=== PATIENT | male | born 1965 | race Caucasian/White ===

== ENCOUNTER → 2016-11-21 | Day surgery (SDC) | payer BC ==
[2015-06-03 10:55] VITALS: BMI 29.5
[~2016-11-21] MED LIST: DEXAMETHASONE 4 MG/ML VIAL IV ONE; FENTANYL 100 MCG/2 ML VIAL IV ONE; FENTANYL 100 MCG/2 ML VIAL IV PRN; HYDROmorphone 1 MG INJECTION IV PRN; ISOVUE-300 (61%) 50 ML ONE; KETOROLAC TROMETH 30 MG/ML VIAL IM ONE; LABETALOL 20 MG/4 ML SYRINGE IV PRN; LIDOCAINE 100 MG PFS IV ONE; Levofloxacin 500 mg/100 ml D5W 500 MG/100 ML RTU IV ONE; MEPERIDINE 25 MG/ML TUBEX IV PRN; MIDAZOLAM 2 MG/2 ML VIAL IV ONE; ONDANSETRON HCL 4 MG ODT TAB PO PRN; ONDANSETRON HCL 4 MG/2 ML VIAL IV ONE; ONDANSETRON HCL 4 MG/2 ML VIAL IV PRN; OXYCODONE HCL 5 MG TABLET ONE; PROPOFOL 200 MG/20 ML VIAL IV ONE; hydrALAZINE 20 MG/ML VIAL IV PRN
[2016-11-21 07:29] LABS: AUTOMATED BASOPHIL 0.8 % (0-2); AUTOMATED EOSINOPHIL 5.3 % (0-5); AUTOMATED MONOCYTE 9.6 % (3-10); AUTOMATED NEUTROPHIL 66.3 % (45-76); MPV 8.1 fL (7.4-10.4)
[2016-11-21 07:40] LABS: BLOOD UREA NITROGEN 16 MG/DL (9-20); CALCIUM 8.5 MG/DL (8.4-10.2); CALCULATED OSMOLALITY 269 MOs/Kg (270-290); CHLORIDE 102 mEq/L (98-107); GLUCOSE 97 MG/DL (70-99); SODIUM LEVEL 139 mEq/L (137-146)
--- NOTE | 2016-11-21 08:00 | HIM.ANES ---
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), Hx Cardiac Disorders HEENT: Yes: Other HEENT Problems Hx Other HEENT Problems: allergic rhinitis; eustachian tube dysfunction Respiratory: Yes: Hx Snoring No: Hx Sleep Apnea (NEGATIVE SLEEP APNEA TEST 2011.) Gastrointestinal: Yes: Hx Gastrointestinal Disorders, Hx Diverticulitis, Hx Diverticulosis, Hx Colonoscopy (2012) Neurological/Musculoskeletal: No: Hx Neurological Disorders Psychological: No Hx Mental/Emotional Disorders Blood/Autoimmune: No: Hx Blood Transfusions, Hx AIDS, Hx Hepatitis (type) Smoking Status: Never smoker Surgical History: Yes: Ureter Stent (URETER 11/2014) Other Surgical History: 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, visceral CYSTOSCOPY - Focused Physical Exam NPO since: 11/20/17 2200 Mallampati: Class II Thyromental Distance: Greater than 3 Neck: Full Range of Motion Dental: Normal - no significant findings Cardiovascular/Chest: Normal Respiratory: Lungs clear Any problems with anesthesia, including nausea and vomiting?: No Any relatives with a history of Malignant Hyperthermia?: No Beta Esau given (if appropriate): N/A Other: Problem List Problem Status Onset Renal calculus Acute Ureter colic Acute CBC/BMP/Other 11/21/16 07:23 11/21/16 07:23 Allergies Allergy/AdvReac Type Severity Reaction Status Date / Time No Known Allergies Allergy Verified 11/21/16 07:33 Home Medications Medication Instructions Recorded Last Taken Type Cetirizine HCl [Zyrtec] 10 mg PO DAILY 11/21/16 11/20/16 History Ciprofloxacin HCl [Cipro] 500 mg PO BID 11/21/16 11/21/16 06:00 History Cyanocobalamin (Vitamin B-12) 1,000 mcg PO DAILY 11/21/16 11/20/16 History [Vitamin B-12] Docusate Sodium [Stool Softener] 100 mg PO DAILY 11/21/16 11/20/16 History Hydrocodone/Acetaminophen 1 each PO Q6H PRN 11/21/16 11/21/16 03:15 History [Hydrocodon-Acetaminoph 7.5-325] Naproxen Sodium [Aleve] 220 mg PO DAILY 11/21/16 11/20/16 History Tamsulosin HCl [Flomax] 0.4 mg PO DAILY 11/21/16 11/21/16 06:00 History Height and Weight Patient's height 5 ft 8 in Patient's weight 93.894 kg BMI 29.5 Vital Signs Temperature Pulse Rate 71 11/21/16 07:36 Respiratory Rate 20 11/21/16 07:36 Blood Pressure 125/80 11/21/16 07:36 Pulse Oxygen Saturation 95 11/21/16 07:36 - Anesthetic Plan Anesthesia Type: General ASA Class: 2 -: I have examined this patient and reviewed the medical record. The patient has been assessed prior to anesthesia. Risks and benefits of anesthesia and anesthetic technique options have been discussed and all questions answered. The patient accepts the risk and desires me to proceed with the planned anesthetic.
--- NOTE | 2016-11-21 11:07 | HIMOPRPT ---
POSTOPERATIVE DIAGNOSIS: DATE OF PROCEDURE: 11/21/16 PREOPERATIVE DIAGNOSIS: LEFT UPPER URETERAL STONE WITH OBSTRUCTION. POSTOPERATIVE DIAGNOSIS: LEFT UPPER URETERAL STONE MOST LIKELY MIGRATED INTO THE KIDNEY . PROCEDURE PERFORMED: WITH CYSTOSCOPY LEFT RETROGRADE PYELOGRAM LEFT URETEROSCOPY AND DOUBLE-J STENT PLACEMENT 6 GAMBIAN 24 CM DOUBLE-J STENT WITH A STRING WAS USED . ANESTHESIA: TERMINATED CYSTOSCOPE WAS REINTRODUCED. SURGEON: Christian Burleson MD PROCEDURE IN DETAIL: THIS PATIENT WAS TAKEN TO THE OPERATING ROOM WAS GIVEN GENERAL ANESTHESIA-- AFTER THAT HE WAS PUT UP IN LITHOTOMY POSITION AND WAS PREPPED AND DRAPED IN USUAL STERILE FASHION--- A C-ARM AND CAMERA WAS USED NEEDED THROUGHOUT THE PROCEDURE-- A 23 GAMBIAN CYSTOSCOPE WAS INTRODUCED INTO THE BLADDER BLADDER WAS EXAMINED THERE WAS NO EVIDENCE OF ANY TUMORS OR STONES BOTH URETERAL ORIFICES WERE NORMALLY LOCATED THEN A 0.038 GUIDEE. WIRE WAS PASSED THROUGH THE LEFT URETERAL ORIFICE AND GUIDED THROUGH THE URETER INTO THE RENAL PELVIS-- AND A BALLOON DILATING CATHETER WAS PASSED AND POSITIONED ACROSS THE INTRAMURAL URETERS AND THE BALLOON WAS INFLATED TO ADEQUATE PRESSURE PRESSURE BALLOON WAS MAINTAINED FOR 30 SECONDS BALLOON WAS THEN DEFLATED AND REMOVED --- GUIDEWIRE WAS LEFT AND WAS LEFT IN----- LEFT URETEROSCOPY WAS CARRIED OUT WE COULD NOT LOCATE ANY STONE IN THE ENTIRE LENGTH OF THE LEFT URETER OR THE UPPER PART OF THE PELVIS---IT IS QUITE POSSIBLE THE STONE MAY HAVE MIGRATED INTO THE LOWER POLE OF THE KIDNEY OR PATIENT MAY HAVE PASSED A STONE---URETEROSCOPY WAS AND RETROGRADE PYELOGRAMS OBTAINED THEN THEY DOUBLE-J STENT WAS LEFT ENDS SO THAT THE UPPER END WAS CURLED UP IN THE RENAL PELVIS LOWER END WAS CURLED UP IN THE BLADDER ---SMALL STRING COMING OUT OF THE URETHRA WAS TAPED TO THE OUTSIDE OF THE PENIS THAT --- PATIENT TOLERATED PROCEDURE WELL AND WAS RETURNED TO THE RECOVERY ROOM AREA IN SATISFACTORY CONDITION THANK YOU
[2016-11-21 12:14] VITALS: TEMP 97.1
--- NOTE | 2016-11-21 12:56 | SC.ANESPOS ---
Post-Anesthesia Note LOC: Fully Awake Post-Anesthesia Assessment: Awake, Returned to Baseline, Hemodynamically Stable , Pain Control Adequate Phase I & II Recovery Complete: Yes Apparent Anesthesia Complication: No : N PACU Discharge Time: 11:55 - Vital Signs Blood Pressure: 149/92 Pulse: 69 Resp Rate: 16 O2 Sat: 97 Temp: 97.1 F - Comments Anesthesia Discharge Time Report Time 11:55
[2016-11-21 14:03] VITALS: BP 136/78; PULSE 64
== END ==
LOC: SDC 07:02
PROVIDERS: ATTEND Urology
PROC: 0T778DZ Dilation of Left Ureter with Intraluminal Device, Via Natural or Artificial Opening Endoscopic (ICD-10-PCS; principal; 2016-11-21 08:30)
DX: N20.1 Calculus of ureter (principal)
CPT/HCPCS: 52332; 80048; 85025; C2617; J1100; J1885; J1956; J2001; J2250; J2405; J3010; J3490